=== PATIENT | female | born 1995 | race Caucasian/White ===

== ENCOUNTER 2017-08-19 19:00 | Emergency (ER) | payer BC ==
[~2017-08-19] VITALS: Ht 170.2 cm; Wt 74.8 kg
[~2017-08-19 19:00] MED LIST: AMOXICILLIN500 MG PO; DOXYCYCLINE HY100 MG PO; FLAGYL500 MG PO; IBUPROFEN600 MG PO; NORCO 5-325 TA1 EACH PO; TYLENOL325 MG; ZOLOFT50 MG PO; [UNRECOGNIZED DRUG - OTHER] PO
[2017-08-19] MEDS ORDERED: ZOFRAN ODT4 MG PO (20:58)
== END 2017-08-19 21:21 | disposition home or self-care (01) ==
LOC: ED 19:00
DX: R10.31 Right lower quadrant pain (principal); F17.200 Nicotine dependence, unspecified, uncomplicated
CPT/HCPCS: 74177; 81001; 96374; 96375; 99284; J1885; J2405; Q9967

== ENCOUNTER 2022-10-10 14:13 | Emergency (ER) | payer OTHER ==
[~2022-10-10] VITALS: Ht 170.2 cm; Wt 71.7 kg
[~2022-10-10 14:13] MED LIST changes: +BACTRIM DS TAB1 EACH PO; +CALCIUM 600 MG1 EA10 PO; +PRENATAL FORMU1 EAC3 PO; +ZOFRAN ODT4 MG PO
[2022-10-10] MEDS ORDERED: REGLAN10 MG PO (17:14)
== END 2022-10-10 17:35 | disposition home or self-care (01) ==
LOC: ED 14:13
DX: O99.512 Diseases of the respiratory system complicating pregnancy, second trimester (principal); J10.1 Influenza due to other identified influenza virus with other respiratory manifestations; Z20.822 Contact with and (suspected) exposure to COVID-19; Z3A.19 19 weeks gestation of pregnancy; F17.200 Nicotine dependence, unspecified, uncomplicated; Z91.040 Latex allergy status; Z88.8 Allergy status to other drugs, medicaments and biological substances; Z79.899 Other long term (current) drug therapy
CPT/HCPCS: 36415; 80048; 81001; 85025; 87502; 99284; C9803; J7030; U0003

== ENCOUNTER 2023-02-15 08:06 | Inpatient (IN) | payer OTHER ==
[~2023-02-15] VITALS: Ht 170.2 cm; Wt 78.0 kg
[~2023-02-15 08:06] MED LIST changes: +REGLAN10 MG PO
--- NOTE | 2023-02-15 10:21 | NUR ---
RT COLLECTED RAPID COVID 19 SWAB AT THIS TIME WITH NO COMPLICATIONS.
--- NOTE | 2023-02-15 13:48 | PR ---
[facility] [address] [place], [place] [address] Signed Progress Notes IP Datetime Report Generated by CPN: 02/15/2023 13:47 PROGRESS NOTES: [id number] Impression: Reassuring Heart Rate Procedures: Sterile Vag Exam Plan: Continue Present Management; Anesthesia Consult VITAL SIGNS: [id number] Vital Signs: Reviewed; Within Normal Limits EXAM: [id number] Dilatation: 4.5 Effacement: 90 Station: -2 Contractions: q 3-4 MEMBRANES: [id number] Comments: Minimal progress since admit. Will recheck in approx 1 hr and proceed with AROM at that time. FETUS A: [id number] FHR Baseline: 140 Variability: Moderate 6-25bpm Accelerations: 15X15 Decelerations: None FHR Category: Category I Presentation: Vertex Comments on Fetus A: No evidence of metabolic acidosis FETUS B: [id number] Signing Physician: Esther Vallecillo MD Copies: ~ *Electronically Signed* 02/15/23 1347 ESTHER VALLECILLO MD PATIENT NAME: ROJASDEBBIETova LOMAS PROGRESS NOTE DATE OF : [birth year] PHYSICIAN: ESTHER VALLECILLO MD RPT #: [id number] REPORT IS CONFIDENTIAL AND NOT TO BE RELEASED WITHOUT AUTHORIZATION
--- NOTE | 2023-02-16 11:11 | PR ---
[facility] [address] [facility] [place], [place] [address] Signed PP Progress Notes Datetime Report Generated by CPUma: 02/16/2023 11:11 SUBJECTIVE: [id number] Pain: Within Normal Limits Vital Signs: [id number] Vital Signs: Reviewed; Within Normal Limits Cardiovascular: Not Done Respiratory: Not Done Abdomen/Uterus: Abnormal Lochia: Normal Vulva/Perineum: Not Done Breasts: Not Done CVA Tenderness: Not Done Extremities: Normal Incision: Not Applicable Progress: Normal Exam Comments: Fundus firm, NT @ U-2. H/H 12.4/36.4, WBC 19.9, plat 277k IMPRESSION/PLAN/PROCEDURES: [id number] Impression: Normal Progression Plan: Continue Present Management Procedures: None Progress Notes: Doing well. Will continue present care with discharge in am. Signing Physician: Esther Vallecillo MD Copies: ~ *Electronically Signed* 02/16/23 1111 ESTHER VALLECILLO MD PATIENT NAME: CONNOR XIE PROGRESS NOTE DATE OF : [birth year] PHYSICIAN: ESTHER VALLECILLO MD RPT #: [id number] REPORT IS CONFIDENTIAL AND NOT TO BE RELEASED WITHOUT AUTHORIZATION
--- NOTE | 2023-02-17 08:47 | PR ---
[facility] [address] [facility] [place], [place] [address] Signed PP Progress Notes Datetime Report Generated by CPN: 02/17/2023 08:47 SUBJECTIVE: [id number] Pain: Within Normal Limits Vital Signs: [id number] Vital Signs: Reviewed; Within Normal Limits Cardiovascular: Not Done Respiratory: Not Done Abdomen/Uterus: Abnormal Lochia: Normal Vulva/Perineum: Not Done Breasts: Not Done CVA Tenderness: Not Done Extremities: Normal Incision: Not Applicable Progress: Normal Exam Comments: Fundus firm, NT @ U-2 IMPRESSION/PLAN/PROCEDURES: [id number] Impression: Normal Progression Plan: Discharge Procedures: None Progress Notes: Doing well. She is ready for D/C. Signing Physician: Esther Vallecillo MD Copies: ~ *Electronically Signed* 02/17/23 0847 ESTHER VALLECILLO MD PATIENT NAME: CONNOR XIE PROGRESS NOTE DATE OF : 93 PHYSICIAN: ESTHER VALLECILLO MD RPT #: [id number] REPORT IS CONFIDENTIAL AND NOT TO BE RELEASED WITHOUT AUTHORIZATION
== END 2023-02-17 10:18 | disposition home or self-care (01) | DRG 807 ==
LOC: FBCO 08:06 → FBC 08:48
PROVIDERS: ADMIT Obstetrics & Gynecology; ATTEND Obstetrics & Gynecology
PROC: 10E0XZZ Delivery of Products of Conception, External Approach (ICD-10-PCS; principal; 2023-02-15)
PROC: 3E0R3BZ Introduction of Anesthetic Agent into Spinal Canal, Percutaneous Approach (ICD-10-PCS; 2023-02-15)
DX: O99.824 Streptococcus B carrier state complicating childbirth (principal); Z37.0 Single live birth; Z3A.38 38 weeks gestation of pregnancy; O99.334 Smoking (tobacco) complicating childbirth; F17.210 Nicotine dependence, cigarettes, uncomplicated; Z67.10 Type A blood, Rh positive; Z20.822 Contact with and (suspected) exposure to COVID-19; Z91.040 Latex allergy status; Z79.899 Other long term (current) drug therapy; Z88.8 Allergy status to other drugs, medicaments and biological substances
CPT/HCPCS: 36415; 85027; 85060; 86850; 86900; 86901; 87502; A9270; C9803; J2540; J2590; U0003